=== PATIENT | female | born 1970 | race Caucasian/White ===

== ENCOUNTER 2022-12-03 10:07 | Emergency (ER) | payer OTHER ==
[~2022-12-03] VITALS: Ht 167.6 cm; Wt 99.8 kg
[~2022-12-03 10:07] MED LIST: ASCO1ER PO; CEPH500 PO; HYDACE5 PO; IBUP800 PO; MULVITMINE PO; PROM25 PO; RXCEPH500 PO; RXSULTRIDS PO; SULTRIDS PO; Zofran4 MG PO
[2022-12-03 10:49] VITALS: BP 124/86
[2022-12-03] MEDS ORDERED: AMOCLA875 PO (10:50)
== END 2022-12-03 10:55 | disposition home or self-care (01) ==
LOC: ER 10:07
DX: K04.7 Periapical abscess without sinus (principal); E11.9 Type 2 diabetes mellitus without complications; F17.200 Nicotine dependence, unspecified, uncomplicated; Z79.899 Other long term (current) drug therapy
CPT/HCPCS: 99282

== ENCOUNTER → 2023-09-04 | Outpatient (CLI) | payer OTHER ==
[~2023-09-04] MED LIST changes: +AMOCLA875 PO
[2023-09-09 09:32] LABS: HPV HIGH RISK BY TMA Not Detected; HPV SOURCE Cervical
== END ==
LOC: LAB 16:10 → LAB SHORT 16:10
PROVIDERS: Family Medicine
DX: Z01.419 Encounter for gynecological examination (general) (routine) without abnormal findings (principal)
CPT/HCPCS: 87624; G0123